=== PATIENT | male | born 1990 | race Caucasian/White ===

== ENCOUNTER 2019-07-26 08:00 | Outpatient (CLI) | payer MEDICAID ==
--- NOTE | 2019-07-26 15:27 | XRAY Report ---
Reason: THORACIC BACK PAIN Procedure Date: 07/26/2019 Accession Number: [id number] / [id number] Procedure: WCP - Thoracic Spine 3 View CPT Code: Final Report FULL RESULT: PROCEDURE: Thoracic Spine 3 View INDICATIONS: THORACIC BACK PAIN TECHNIQUE: 3 views of the thoracic spine were acquired. COMPARISON: None. FINDINGS: Bones: No fractures or dislocations. No suspicious bony lesions. 12 pairs of ribs are noted, and appear intact where visualized. Soft tissues: No paravertebral stripe thickening. IMPRESSION: No evidence acute bony abnormality of the thoracic spine. Reviewed by: Kenny Anthony MD on 07/26/2019 3:26 PM PDT Approved by: Kenny Anthony MD on 07/26/2019 3:26 PM PDT Station ID: [id number]
== END 2019-07-26 23:59 | disposition home or self-care (01) ==
LOC: DI.WCP 08:00
PROVIDERS: ATTEND Family Medicine
DX: M54.6 Pain in thoracic spine (principal)
CPT/HCPCS: 72072

== ENCOUNTER 2019-10-07 07:00 | Outpatient (CLI) | payer MEDICAID | END 2019-10-07 07:01 | disposition home or self-care (01) | LOC: LAB.R 07:00 | PROVIDERS: ATTEND Orthopaedic Surgery | DX: Z01.812 Encounter for preprocedural laboratory examination (principal); S82.842A Displaced bimalleolar fracture of left lower leg, initial encounter for closed fracture; Z20.828 Contact with and (suspected) exposure to other viral communicable diseases ==

== ENCOUNTER 2019-10-11 12:25 | Day surgery (SDC) | payer MEDICAID ==
[~2019-10-11 12:25] MED LIST: BACITRACIN 50,000 UNIT VIAL ONE; BUPIVACAINE 0.25% PF 30 ML VIAL ONE; EPINEPHrine 1 MG/ML AMP ONE
[2019-10-11] MEDS ORDERED: ACETAMINOPHEN 1,000 MG/100 ML 100 ML IV ONE (12:26)
[2019-10-11] MEDS ORDERED: LACTATED RINGERS 1,000 ML IV ONE ×2 (12:56→18:18)
[2019-10-11] MEDS ORDERED: CEFAZOLIN SODIUM IN 0.9 % NACL 2 GM/100 ML BAG IV ONE (13:10)
--- NOTE | 2019-10-11 15:02 | ANESTHESIA ---
Pre-Anesthesia VS, & Labs - Diagnosis L ankle fx - Procedure L ankle ORIF Vital Signs: Temp Pulse Resp BP Pulse Ox 37.2 C 62 12 129/88 H 97 10/11/19 12:47 10/11/19 12:47 10/11/19 12:47 10/11/19 12:47 10/11/19 12:47 Height 5 ft 11 in Weight (kg) 66 kg Body Mass Index 20.2 - NPO >8 hours - Lab Results Lab results reviewed: Yes Home Medications and Allergies Allergies/Adverse Reactions: Allergies Allergy/AdvReac Type Severity Reaction Status Date / Time Penicillins Allergy Unknown Verified 10/11/19 12:49 Anes History & Medical History - Anesthetic History Anesthesia Complications: reports: No previous complications Family history of Anesthesia Complications: Denies Family history of Malignant Hyperthermia: Denies - Medical History Cardiovascular: reports: None Pulmonary: reports: None Gastrointestinal: reports: None Urinary: reports: None Musculoskeletal: reports: None Endocrine/Autoimmune: reports: None Skin: reports: None Smoking Status: Never smoker Exam General: Alert, Oriented x3, Cooperative Dental: WNL Mouth Openin Fingerbreadth Neck Mobility: Normal Mallampati classification: II Thyromental Distance: greater than 6 cm Respiratory: Lungs clear, Normal breath sounds, No respiratory distress Cardiovascular: Regular rate Neurological: Normal speech Mental/Cognitive Status: Alert/Oriented X3, Normal for patient Cognitive Status: Within normal limits Plan Anesthesia Type: General, Popliteal Block (lateral sciatic after induction) Consent for Procedure(s) Verified and Reviewed: Yes Code Status: Attempt Resuscitation ASA classification: 2-Mild systemic disease Is this case an emergency?: No
[2019-10-11] MEDS ORDERED: BUPIVACAINE 0.25% PF 30 ML VIAL ONE (15:11)
[2019-10-11] MEDS ORDERED: BACITRACIN ZINC OINT 1 PACKET TOP ONE (17:57)
[2019-10-11] MEDS ORDERED: BUPIVACAINE 0.25% PF 30 ML VIAL SUBQ ONE (17:59)
--- NOTE | 2019-10-11 18:15 | OPERATIVE REPORT ---
Operative Report - General Procedure Date: 10/11/19 Planned Procedure: Open reduction internal fixation Left ankle Pre-Op Diagnosis: Closed, displaced bimalleolar fracture left ankle Procedure Performed: Open reduction internal fixation bimalleolar fracture left ankle Post Op Diagnosis: Same as preop diagnosis - Procedure Note Primary Surgeon: Dr. Germán Xiao Secondary Surgeon: Braulio SALAS Anesthesia Technique: General mask, Regional block Estimated Blood Loss (mL): 25 Indications: Bimalleolar fracture right ankle with unstable ankle mortise Findings: This was a Narvaez B ankle fracture with the fracture of the lateral malleolus above the joint line and no black with a medial malleolar fracture below ankle joint and transverse in orientation. Complications: None known - Other Other Information/Narrative: The patient was brought to the operating room and was given a general anesthetic as well as a popliteal block to the left leg. He was placed in a supine posit ion with padded gel bags beneath the left buttock. A pneumatic tourniquet was applied to the proximal left thigh over cast padding and secured with a U drape. The left upper extremity was prepped and draped in a sterile manner in the usual fashion. A timeout procedure was performed by the entire operating room team and all were in agreement. The left leg was exsanguinated and the thigh pneumatic tourniquet was elevated to 250 mmHg. A posterior fibular incision was made in a longitudinal fashion beginning at the lateral malleolus and extending it proximally. The peroneal tendon was protected. The fracture site was identified. Fracture hematoma was removed using curette and saline lavage. A bump was used to facilitate fracture reduction as well as bone clamps that were pointed. The fracture was reduced and was temporarily stabilized with a intramedullary K wire. A posterior lateral [employer]hew plate was applied to the posterior aspect of the fibula. The plate was held in place with a plate clamp. 3 holes were placed distal to the fracture including one screw hole that crossed the fracture in a perpendicular fashion to give direct fracture fixation as well as buttress plate fixation with the additional screws that were placed proximally. An 8 hole plate was applied. The alignment was anatomic and the fixation was excellent with nonlocking screws. The plate conformed well to the bone as the screws compressed the plate to the bone.Intraoperative x-rays were obtained with the C arm image intensifier using biplanar imaging. A second incision was made over the medial malleolus, protecting the saphenous vein as well as the posterior tibial tendon posteriorly. The fracture was opened, saline lavage was performed. The fracture was secured with a small bone clamp. A cannulated guidepin was inserted, drilled and a 4.0 cancellus compression screw was inserted using the C arm image intensifier for guidance. The fracture alignment was very good, the ankle mortise was stable. The syndesmosis was stressed and was found to be stable. The tourniquet was deflated after 87 minutes. The wounds were irrigated with saline. The soft tissue was closed with 2-0 Vicryl. The skin was closed with stainless steel иван. Bacitracin, Xeroform, sterile gauze and a well-padded posterior fiberglass splint was applied with the ankle in neutral dorsiflexion. He did receive 2 g of Ancef intravenously and tolerated the procedure well.A physician pediatric medical assistant was utilized during the procedure to facilitate exposure, fracture reduction, assistance with internal fixation, wound closure and splint application during the procedure.
[2019-10-11] MEDS ORDERED: KETOROLAC 15 MG/ML VIAL IVP STA (18:19)
[2019-10-11] MEDS ORDERED: oxyCODONE 5 MG TABLET PO PRN (18:19)
[2019-10-11] MEDS ORDERED: NALOXONE 0.4 MG/ML VIAL IVP PRN (18:37)
[2019-10-11] MEDS ORDERED: ATROPINE ABBOJECT 1 MG/10 ML SYRINGE IVP PRN (18:37)
[2019-10-11] MEDS ORDERED: fentaNYL 100 MCG/2 ML VIAL IVP PRN (18:37)
[2019-10-11] MEDS ORDERED: MORPHINE 2 MG/ML CARPUJECT IVP PRN (18:37)
[2019-10-11] MEDS ORDERED: METOCLOPRAMIDE 10 MG/2 ML VIAL IVP PRN (18:37)
[2019-10-11] MEDS ORDERED: ePHEDrine 50 MG/ML VIAL IVP PRN (18:37)
[2019-10-11] MEDS ORDERED: HYDROmorphone 0.5 MG/0.5 ML SYRINGE IVP PRN (18:37)
[2019-10-11] MEDS ORDERED: ONDANSETRON 4 MG/2 ML VIAL IVP PRN (18:37)
--- NOTE | 2019-10-11 18:44 | ANESTHESIA POST OP EVALUATION ---
Anesthesia Post Eval - Post Anesthesia Eval Vitals: Last Vital Signs Temp 37.2 C 10/11/19 12:47 Pulse 62 10/11/19 12:47 Resp 12 10/11/19 12:47 BP 129/88 H 10/11/19 12:47 Pulse Ox 97 10/11/19 12:47 CV Function Including HR & BP: positive: Stable Pain Control: positive: Satisfactory Nausea & Vomiting: positive: Negative Mental Status: positive: Baseline Respiratory Status: Airway Patent Hydration Status: Satisfactory Anesthesia Complications: positive: None
[2019-10-11] MEDS ORDERED: LACTATED RINGERS 1,000 ML IV SCH (19:00)
[2019-10-11] MEDS ORDERED: fentaNYL 100 MCG/2 ML VIAL ONE (19:01)
[2019-10-11 20:47] VITALS: BP 130/68
--- NOTE | 2019-10-12 16:34 | XRAY Report ---
PROCEDURE: OR C-Arm Procedure INDICATIONS: ANKLE FX TECHNIQUE: 2 images was provided for evaluation. COMPARISON: X-ray ankle 10/01/2019 FINDINGS: Single intraoperative images demonstrate medial malleolar and distal fibular fixation. IMPRESSION: Medial malleolar distal fibular fixation. Reviewed by: Estefany Jin MD on 10/12/2019 4:33 PM PDT Approved by: Estefany Jin MD on 10/12/2019 4:33 PM PDT Station ID: [id number]
== END 2019-10-11 21:20 | disposition home or self-care (01) ==
LOC: SDS 12:25 → MS3 19:11 → SDS 21:20
PROVIDERS: ATTEND Orthopaedic Surgery
DX: S82.842A Displaced bimalleolar fracture of left lower leg, initial encounter for closed fracture (principal); Z87.891 Personal history of nicotine dependence; X58.XXXA Exposure to other specified factors, initial encounter
CPT/HCPCS: 27814; A9270; J0690; J7120

== ENCOUNTER 2019-10-21 08:22 | Outpatient (CLI) | payer MEDICAID ==
--- NOTE | 2019-10-21 14:44 | XRAY Report ---
PROCEDURE: Ankle 3 View LT INDICATIONS: DISPLACED BIMALLEOLAR FRACTURE OF LEFT LOWER LEG TECHNIQUE: 3 views of the ankle were acquired. COMPARISON: 10/11/2019, 10/01/2019 FINDINGS: Bones: ORIF hardware in the medial and lateral malleoli. Specifically, lack screw in the medial malle olus and screw hardware construct at the lateral malleolus and distal fibula. Ankle mortise appears c ongruent. Anatomic alignment of the fracture fragments, significantly improved when compared to prior study. Small displaced fracture fragment remains in the anterior joint space, best seen on lateral v iew. Soft tissues: No tibiotalar joint effusion. Achilles tendon appears normal. IMPRESSION: Post surgical changes related to medial and lateral malleolus ORIF. No acute, getting us rdware feature. There remains a small displaced fracture fragment in the anterior joint space, best s een on lateral view. Reviewed by: Elroy Hood MD on 10/21/2019 2:43 PM PDT Approved by: Elroy Hood MD on 10/21/2019 2:43 PM PDT Station ID: [id number]
== END 2019-10-21 08:23 | disposition home or self-care (01) ==
LOC: DI.WCP 08:22
PROVIDERS: ATTEND Orthopaedic Surgery
DX: S82.842D Displaced bimalleolar fracture of left lower leg, subsequent encounter for closed fracture with routine healing (principal)

== ENCOUNTER 2019-11-25 07:36 | Outpatient (CLI) | payer MEDICAID ==
--- NOTE | 2019-11-25 11:40 | XRAY Report ---
PROCEDURE: Ankle 3 View LT INDICATIONS: LEFT ANKLE FRACTURE, POST-OP TECHNIQUE: 3 views of the ankle were acquired. COMPARISON: 10/13/2019 FINDINGS: Bones: Postsurgical changes compatible with ORIF of medial malleolus and distal fibular fractures not ed. Orthopedic hardware is stable compared to prior examination. Orthopedic hardware remains intact. Medial malleolus and distal fibula fractures remain in anatomic alignment. Small central 0.6 x 0.8 cm avulsed bone fragment in the anterior tibiotalar joint space is stable compared to the prior exam. Soft tissues: No tibiotalar joint effusion. Achilles tendon appears normal. IMPRESSION: Stable postsurgical changes compatible with ORIF of medial malleolus and distal fibular fractures. Stable avulsed bone fragment in the anterior tibiotalar joint. Reviewed by: Adri Orellana MD, PhD on 11/25/2019 11:39 AM PDT Approved by: Adri Orellana MD, PhD on 11/25/2019 11:39 AM PDT Station ID: [id number]
== END 2019-11-25 07:37 | disposition home or self-care (01) ==
LOC: DI.WCP 07:36
PROVIDERS: ATTEND Orthopaedic Surgery
DX: S82.52XA Displaced fracture of medial malleolus of left tibia, initial encounter for closed fracture (principal); S82.832A Other fracture of upper and lower end of left fibula, initial encounter for closed fracture

== ENCOUNTER 2019-12-26 16:45 | Outpatient (CLI) | payer MEDICAID ==
--- NOTE | 2019-12-26 16:48 | XRAY Report ---
PROCEDURE: Ankle 3 View LT INDICATIONS: BIMALLEOLAR FRACTURE LEFT ANKLE TECHNIQUE: 3 views of the ankle were acquired. COMPARISON: X-ray ankle 11/25/2019 FINDINGS: Bones: There is stable appearance of bimalleolar ORIF. Hardware is intact. Alignment is stable. Mild midfoot osteopenia is present. Bony fragment overlying tibiotalar joint space is unchanged. Ankle mor tise is normally aligned. No suspicious bony lesions. Soft tissues: No tibiotalar joint effusion. Achilles tendon appears normal. IMPRESSION: Stable alignment as above. Reviewed by: Estefany Jin MD on 12/26/2019 4:46 PM PST Approved by: Estefany Jin MD on 12/26/2019 4:46 PM PST Station ID: [id number]
== END 2019-12-26 23:59 | disposition home or self-care (01) ==
LOC: DI.WCP 16:45
PROVIDERS: ATTEND Orthopaedic Surgery
DX: S82.842D Displaced bimalleolar fracture of left lower leg, subsequent encounter for closed fracture with routine healing (principal)

== ENCOUNTER 2020-05-04 08:00 | Outpatient (CLI) | payer MEDICAID ==
--- NOTE | 2020-05-04 12:31 | XRAY Report ---
PROCEDURE: Ankle 3 View LT INDICATIONS: LEFT ANKLE PAIN TECHNIQUE: 3 views of the ankle were acquired. COMPARISON: 12/26/2019 FINDINGS: Bones: Post ORIF changes are noted in distal fibular shaft and medial malleolus. No gross hardware l oosening or failure is seen. No acute fractures or dislocations. Patient's known distal fibular shaft fracture has healed. Bony union and medial malleolus fracture site. Ankle mortise is normally aligne d. No suspicious bony lesions. Soft tissues: No tibiotalar joint effusion. Achilles tendon appears normal. Medial ankle soft tiss ue swelling is noted. IMPRESSION: 1. Post ORIF changes in left ankle with anatomic alignment. No acute fracture or dislocation. No tavia s hardware complication. Medial ankle soft tissue swelling. Reviewed by: Kervin Jackson MD on 05/04/2020 12:30 PM PST Approved by: Kervin Jackson MD on 05/04/2020 12:30 PM PST Station ID: [id number]
== END 2020-05-04 23:59 | disposition home or self-care (01) ==
LOC: DI.N 08:00
PROVIDERS: ATTEND Orthopaedic Surgery
DX: Z48.89 Encounter for other specified surgical aftercare (principal)

== ENCOUNTER 2020-05-11 13:26 | Outpatient (CLI) | payer MEDICAID | END 2020-05-11 13:27 | disposition home or self-care (01) | LOC: COV 13:26 | PROVIDERS: ATTEND Orthopaedic Surgery | DX: Z01.812 Encounter for preprocedural laboratory examination (principal); S82.52XA Displaced fracture of medial malleolus of left tibia, initial encounter for closed fracture; Z20.822 Contact with and (suspected) exposure to COVID-19 ==

== ENCOUNTER 2020-05-16 12:25 | Day surgery (SDC) | payer MEDICAID ==
[2020-05-16] MEDS ORDERED: ceFAZolin 2 GM/50 ML 2 GM/50 ML BAG IV ONE (12:47)
--- NOTE | 2020-05-16 13:11 | ANESTHESIA ---
Pre-Anesthesia VS, & Labs - Diagnosis left medial malleolus ankle fracture - Procedure hardware removal left ankle medial malleolous Vital Signs: Temp Pulse Resp BP Pulse Ox 36.9 C 97 20 116/78 98 05/16/20 12:48 05/16/20 12:48 05/16/20 12:48 05/16/20 12:48 05/16/20 12:48 Height: 5 ft 11 in Weight (kg): 75 kg Body Mass Index: 23.1 BMI Classification: Healthy weight - NPO >8 hours - Lab Results Lab results reviewed: Yes Home Medications and Allergies Allergies/Adverse Reactions: Allergies Allergy/AdvReac Type Severity Reaction Status Date / Time Penicillins Allergy Unknown Verified 10/11/19 12:49 Anes History & Medical History - Anesthetic History Anesthesia Complications: reports: No previous complications Family history of Anesthesia Complications: Denies Family history of Malignant Hyperthermia: Denies - Medical History Cardiovascular: reports: None Pulmonary: reports: None Gastrointestinal: reports: None Urinary: reports: None Musculoskeletal: reports: None Endocrine/Autoimmune: reports: None Skin: reports: None Smoking Status: Never smoker Psychosocial: reports: Anxiety Exam General: Alert, Oriented x3, Cooperative, No acute distress Dental: WNL Mouth Openin Fingerbreadth Neck Mobility: Normal Mallampati classification: I Respiratory: Lungs clear Cardiovascular: Regular rate, Normal S1, Normal S2, No murmurs Plan Anesthesia Type: General, Popliteal Block (if needed), Adductor Block Consent for Procedure(s) Verified and Reviewed: Yes Code Status: Attempt Resuscitation ASA classification: 1-Healthy patient Is this case an emergency?: No
[2020-05-16] MEDS ORDERED: MIDAZOLAM 2 MG/2 ML VIAL ONE (14:01)
[2020-05-16] MEDS ORDERED: fentaNYL 100 MCG/2 ML VIAL ONE (14:01)
[2020-05-16] MEDS ORDERED: ROPIVACAINE 0.5% PF 20 ML AMPULE ONE (14:02)
[2020-05-16] MEDS ORDERED: DEXAMETHASONE 10 MG/ML VIAL ONE (14:02)
[2020-05-16] MEDS ORDERED: PROPOFOL 200 MG/20 ML VIAL IVP ONE (14:02)
[2020-05-16] MEDS ORDERED: ONDANSETRON 4 MG/2 ML VIAL ONE (14:02)
[2020-05-16] MEDS ORDERED: DEXAMETHASONE 4 MG/ML VIAL ONE (14:02)
[2020-05-16] MEDS ORDERED: METOCLOPRAMIDE 10 MG/2 ML VIAL IVP PRN (14:06)
[2020-05-16] MEDS ORDERED: NALOXONE 0.4 MG/ML VIAL IVP PRN (14:06)
[2020-05-16] MEDS ORDERED: ePHEDrine 50 MG/ML VIAL IVP PRN (14:06)
[2020-05-16] MEDS ORDERED: ONDANSETRON 4 MG/2 ML VIAL IVP PRN (14:06)
[2020-05-16] MEDS ORDERED: HYDROmorphone 0.5 MG/0.5 ML SYRINGE IVP PRN (14:06)
[2020-05-16] MEDS ORDERED: ATROPINE ABBOJECT 1 MG/10 ML SYRINGE IVP PRN (14:06)
[2020-05-16] MEDS ORDERED: MORPHINE 2 MG/ML CARPUJECT IVP PRN (14:06)
[2020-05-16] MEDS ORDERED: fentaNYL 100 MCG/2 ML VIAL IVP PRN (14:06)
[2020-05-16] MEDS ORDERED: LACTATED RINGERS 1,000 ML IV SCH (15:00)
--- NOTE | 2020-05-16 15:22 | OPERATIVE REPORT ---
Operative Report - General Procedure Date: 05/16/20 Planned Procedure: Removal internal fixation medial malleolus, possible repair medial malleolus Left ankle Pre-Op Diagnosis: Pain over internal fixation site medial malleolus left ankle Procedure Performed: Removal of internal fixation medial malleolus left ankle Post Op Diagnosis: Pain over internal fixation site medial malleolus left ankle - Procedure Note Primary Surgeon: Germán Xiao MD Secondary Surgeon: Braulio SALAS Anesthesia Provider: Sanjay Nichols CRNA Anesthesia Technique: General ET tube, Regional block Estimated Blood Loss (mL): 5 Indications: This is a 30-year-old man who previously sustained a bimalleolar fracture of his left ankle last year and underwent open reduction internal fixation of the medial and lateral malleolar I did. He has pain directly over the medial malle olus that has not improved and is very aggravating with weightbearing and any activity. His preoperative x-rays suggest healing of his medial malleolar fracture, ankle mortise intact, no sign of posttraumatic arthritis. Because of a potential incomplete union of medial malleolar fracture to his left ankle, I did discuss with him the possibility of a repair If indicated and he was in agreement. Findings: The screw to the medial malleolus was a cancellous screw. The screw was not loose. There is no sign of any nonunion at the fracture site of the medial malleolus. The ankle mortise was intact. And C-arm imaging was used to also confirm the clinical impression of union of the medial malleolus to his left ankle. There is no sign of deltoid insufficiency to his left ankle Complications: None - Other Other Information/Narrative: After satisfactory anesthesia was achieved, patient was placed in a supine position with the left leg on a bolster. The left leg was prepped and draped in a sterile manner in the usual fashion. A timeout procedure was performed by the entire operating room team and all were in agreement. A physician technical administrative assistant was utilized to help with the exposure and protection of vital structures as well as wound closure and splint application. The previous scar was opened over the medial malleolus. This was a longitudinal incision full-thickness flaps were developed just enough to expose the tip of the medial malleolus. The deltoid was split and the screw was identified, clearing the head of the screw with electrocautery. The screwdriver of appropriate size was then used to remove the screw. The tip of the medial malleolus was gently rounded with a rongeur where the screw head had been previously. The wound was irrigated. The deltoid was closed with 2-0 Vicryl. The skin was closed with 4-0 Monocryl subcuticular suture with Dermabond. A sterile dressing was applied as well as a short leg padded posterior nonweightbearing splint to left leg. He tolerated procedure well. No tourniquet was utilized.
[2020-05-16] MEDS ORDERED: oxyCODONE 5 MG TABLET PO PRN (15:34)
[2020-05-16] MEDS ORDERED: KETOROLAC 15 MG/ML VIAL IVP STA (15:34)
[2020-05-16] MEDS ORDERED: LACTATED RINGERS 500 ML IV ONE (15:37)
[2020-05-16] MEDS ORDERED: oxyCODONE 5 MG TABLET ONE (16:27)
[2020-05-16] MEDS ORDERED: KETOROLAC 15 MG/ML VIAL ONE (16:28)
--- NOTE | 2020-05-16 16:42 | ANESTHESIA POST OP EVALUATION ---
Anesthesia Post Eval - Post Anesthesia Eval Vitals: Last Vital Signs Temp 36.5 C 05/16/20 16:30 Pulse 55 L 05/16/20 16:30 Resp 14 05/16/20 16:30 BP 126/82 H 05/16/20 16:30 Pulse Ox 100 05/16/20 16:30 CV Function Including HR & BP: positive: Stable Pain Control: positive: Satisfactory Nausea & Vomiting: positive: Negative Mental Status: positive: Baseline Respiratory Status: Airway Patent Hydration Status: Satisfactory Anesthesia Complications: positive: None
[2020-05-16 16:59] VITALS: BP 116/78
--- NOTE | 2020-05-16 17:20 | XRAY Report ---
PROCEDURE: OR C-Arm Procedure INDICATIONS: LEFT ANKLE HARDWARE REMOVAL TECHNIQUE: Single frontal view, intraoperative. COMPARISON: Plain films left ankle dated 05/04/2020.. FINDINGS: Prior lateral fixation plate is partially visualized, to the uppermost crossing screw but not above. This plate and transverse screws show no evidence of device loosening or disruption. A previously pre sent cephalad oriented fixation screw crossing a fracture at the base of the medial malleolus appears to been removed, and the prior plain film imaging had not shown what appeared to be osseous fusion a cross the fracture plane. IMPRESSION: Single postoperative view, no change at the lateral fixation plate or screws. Removal of a cephalad o riented fixation screw crossing the fracture at the base of the medial malleolus, which may have not been associated with a healing fracture in that area, with nonunion. Follow-up postoperative imaging assessing for repeat fixation and evidence of union of fracture is anticipated. Reviewed by: Lanre Nick MD on 05/16/2020 5:19 PM PDT Approved by: Lanre Nick MD on 05/16/2020 5:19 PM PDT Station ID: [id number]
== END 2020-05-16 12:26 | disposition home or self-care (01) ==
LOC: SDS 12:25
PROVIDERS: ATTEND Orthopaedic Surgery
DX: T84.84XA Pain due to internal orthopedic prosthetic devices, implants and grafts, initial encounter (principal); Z87.891 Personal history of nicotine dependence
CPT/HCPCS: 20680; A9270; J0690; J7120

== ENCOUNTER 2020-06-11 06:26 | Emergency (ER) | payer MEDICAID ==
[2020-06-11 06:44] VITALS: BP 122/79
[2020-06-11] MEDS ORDERED: SULFAMETH/TRIMETH DS 800/160 MG TABLET PO STA (07:02)
--- NOTE | 2020-06-11 07:09 | ED Physician Documentation ---
PD HPI SKIN - Stated complaint Stated Complaint: LT LEG SURGERY COMPLICATION - Chief complaint Chief Complaint: Wound - History obtained from History obtained from: Patient - Additional information Additional information: Patient comes emergency department chief complaint of drainage from left ankle surgical wound site since yesterday. Patient had a surgical repair of left ankle fracture last summer and about 3 weeks ago, had removal of a screw from his distal tibia, secondary to ongoing pain. The patient states that he was feeling much better almost immediately after the surgery and has been able to bear weight fairly well. However, he started to notice yesterday that his ankles becoming more swollen and that it seemed to hurt a bit again. He has not had any new injury. He denies fevers or chills. He states he noticed a little increased redness around the wound, but mainly, he noticed that the very inferior most portion of the wound had opened up a tiny bit and that he was having some whitish-yellow cloudy discharge coming from the wound. Patient denies any other complaints at this time. He states he is scheduled to see Dr. Xiao at 1:00 this afternoon, but came to the ED because he was afraid if he waited too long, his wound would become infected even worse and he may end up with an amputation. No other complaints at this time. Review of Systems Ten Systems: 10 systems reviewed and negative Constitutional: reports: Reviewed and negative Eyes: reports: Reviewed and negative Ears: reports: Reviewed and negative Nose: reports: Reviewed and negative Throat: reports: Reviewed and negative Cardiac: reports: Reviewed and negative Respiratory: reports: Reviewed and negative GI: reports: Reviewed and negative : reports: Reviewed and negative Skin: reports: Other (Postop wound drainage) Musculoskeletal: reports: Pain with weight bearing Neurologic: reports: Reviewed and negative Psychiatric: reports: Reviewed and negative Endocrine: reports: Reviewed and negative Immunocompromised: reports: Reviewed and negative PD PAST MEDICAL HISTORY - Past Medical History Past Medical History: No Cardiovascular: None Respiratory: None Endocrine/Autoimmune: None GI: None : None HEENT: None Psych: None Musculoskeletal: None Derm: None - Past Surgical History Past Surgical History: Yes Ortho: Other - Present Medications Home Medications: Ambulatory Orders Medication Instructions Recorded Confirmed Sulfamethox/Trimeth 800/160 1 each PO BID #14 tablet 06/11/20 [Bactrim Ds 800/160] - Allergies Allergies/Adverse Reactions: Allergies Allergy/AdvReac Type Severity Reaction Status Date / Time Penicillins Allergy Unknown Verified 06/11/20 06:44 - Social History Does the pt smoke?: No Smoking Status: Never smoker Does the pt drink ETOH?: Yes Does the pt have substance abuse?: No - Immunizations Immunizations are current?: Yes Immunizations: TDAP >10years/unknown - POLST Patient has POLST: No PD ED PE NORMAL - Vitals Vital signs reviewed: Yes - General General: Alert and oriented X 3, No acute distress, Well developed/nourished - HEENT HEENT: Atraumatic, PERRL, EOMI, Moist mucous membranes - Neck Neck: Supple, no meningeal sign - Cardiac Cardiac: Strong equal pulses - Respiratory Respiratory: No respiratory distress - Derm Derm: Warm and dry, Other (Well-healed vertical surgical incision over left medial malleolus with slightly increased Erythema localized to the inferior most portion of the wound. Small amount of seropurulent drainage is expressible from the wound. Erythema is minimal and localized to within a 1 cm radius of incision.) - Extremities Extremities: No deformity, Other (Mild edema localized to medial left ankle. Mild tenderness palpation over left medial malleolus) - Neuro Neuro: Alert and oriented X 3, audio visual equipment rental clerk 2-12 intact, Normal speech, Other (Grossly normal) - Psych Psych: Normal mood, Normal affect Results - Vitals Vitals: Vital Signs - 24 hr 06/11/20 06:35 Temperature 36.7 C Heart Rate 79 Respiratory 16 Rate Blood Pressure 122/79 O2 Saturation 98 Oxygen O2 Source Room air PD MEDICAL DECISION MAKING - ED course Complexity details: considered differential, d/w patient ED course: The patient had fairly mild findings, but did have what appeared to be some purulence mixed in with the serous drainage expressible from his postoperative wound. I did culture this. Given that the patient been doing quite a bit better and did now have wound dehiscence and some drainage, I did go ahead and put him on antibiotics. He was started on Bactrim. The patient questions whether he should go to his orthopedic appointment this afternoon and I have informed him that he absolutely must, as the emergency department is not a substitute for follow-up with his specialist. We have discussed that the patient should use 2 crutches for now, with NWB and prop his foot up whenever possible until ankle is feeling better. We have discussed the usual indications for return. Departure - Departure Disposition: 01 Home, Self Care Clinical Impression: Wound infection after surgery Condition: Stable Instructions: ED Wound Infec After Surgery Prescriptions: Sulfamethox/Trimeth 800/160 [Bactrim Ds 800/160] 1 each PO BID #14 tablet Comments: You appear to possibly have a mild infection of the lowermost portion of your surgical wound. This does not appear to be severe at this time, and is expected to respond well to antibiotics. Please take the antibiotics as directed, starting today. You have been given the first dose in the emergency department. To help with some of the discomfort and swelling, you should prop your foot up whenever possible, as well as use both crutches and keep weight off the foot as much as possible for the next several days to a week. Please by all means keep your appointment with Dr. Xiao today, as it is very important to see your orthopedist. A visit to the emergency department does not take the place of your specialty follow-up.
--- NOTE | 2020-06-14 09:58 | ED Physician Documentation ---
ED Addendum - Addendum Addendum: 06/14/20 09:55 Mr. Wheeler called back on 06/14 requesting additional Bactrim, stating that he has accidentally been taking it 4 times a day instead of twice daily. No prior history of medical issues including kidney issues per his report and he is otherwise asymptomatic. I advised him to come into the emergency room for wound check and possible bloodwork since he initially expressed concerns the infection was getting worse. He states it actually looks a little better and he would prefer to follow up with his primary doctor or urgent care.
== END 2020-06-11 07:42 | disposition home or self-care (01) ==
LOC: ED 06:26
DX: T81.41XA Infection following a procedure, superficial incisional surgical site, initial encounter (principal); Y83.8 Other surgical procedures as the cause of abnormal reaction of the patient, or of later complication, without mention of misadventure at the time of the procedure
CPT/HCPCS: 87070; 87181; 87205; 99283; 99284; A9270

== ENCOUNTER 2020-06-14 08:00 | Outpatient (CLI) | payer MEDICAID ==
[2020-06-14 20:12] LABS: ALBUMIN 4.9 g/dL (3.2-5.5); ALBUMIN/GLOBULIN RATIO 1.4 (1.0-2.2); BILIRUBIN,TOTAL 0.6 mg/dL (0.2-1.0); CREATININE 1.1 mg/dL (0.6-1.2); POTASSIUM 3.9 mmol/L (3.5-5.0); TOTAL PROTEIN 8.5 g/dL (6.7-8.2)
[2020-06-16 09:16] LABS: HIV AG/AB 4TH GEN NON-REACTIVE (NON-REACTIVE)
[2020-06-16 15:01] LABS: HEPATITIS C ANTIBODY NON-REACTIVE (NON-REACTIVE)
== END 2020-06-14 23:59 | disposition home or self-care (01) ==
LOC: LAB.S 08:00
PROVIDERS: ATTEND Physician Assistant
DX: Z11.3 Encounter for screening for infections with a predominantly sexual mode of transmission (principal); Z79.899 Other long term (current) drug therapy
CPT/HCPCS: 36415; 80053; 81599; 86592; 86803; 87389

== ENCOUNTER 2020-11-14 15:42 | Outpatient (CLI) | payer MEDICAID ==
--- NOTE | 2020-11-14 16:41 | Ultrasound Report ---
PROCEDURE: Testicle INDICATIONS: Testicular mass TECHNIQUE: Real-time scanning was performed of the scrotum and testicles, with image documentation. Color and p ulse Doppler interrogation was performed of both testicles. COMPARISON: None. FINDINGS: There are trace bilateral hydroceles. No varicocele. Both testicles are normal in size and appearance . There is no testicular mass. Normal arterial and venous blood flow present within both testicles. IMPRESSION: Trace bilateral hydroceles. No testicular mass. Reviewed by: Elroy Hood MD on 11/14/2020 4:39 PM PDT Approved by: Elroy Hood MD on 11/14/2020 4:39 PM PDT Station ID: [id number]
== END 2020-11-14 15:43 | disposition home or self-care (01) ==
LOC: DI 15:42
PROVIDERS: ATTEND Family Medicine
DX: N43.3 Hydrocele, unspecified (principal)

== ENCOUNTER 2021-11-15 15:33 | Outpatient (CLI) | payer MEDICAID ==
--- NOTE | 2021-11-15 14:53 | XRAY Report ---
PROCEDURE: Ankle 3 View LT INDICATIONS: LEFT ANKLE PAIN TECHNIQUE: 3 views of the ankle were acquired. COMPARISON: 05/04/2020 FINDINGS: Bones: No acute fractures or dislocations. Interval removal of a medial malleolar screw. There is a well-corticated, mildly displaced transverse medial malleolar fracture. The lateral distal fibular co mpression plate and multiple screws are intact, in stable position, and there is no surrounding lucen cy. Ankle mortise is normally aligned. No suspicious bony lesions. Soft tissues: Small tibiotalar joint effusion. Achilles tendon appears normal. There is focal, but chronic soft tissue swelling over the proximal aspect of the lateral fibular compression plate. No ra diodensity or soft tissue gas. IMPRESSION: 1. There is chronic focal soft tissue swelling overlying the proximal fibular hardware without underl adalberto hardware, osseous, or soft tissue abnormality. 2. Interval removal of medial malleolar screw with nonunited, chronic medial malleolar fracture. Reviewed by: Anahi Ibrahim MD on 11/15/2021 2:52 PM PDT Approved by: Anahi Ibrahim MD on 11/15/2021 2:52 PM PDT Station ID: [id number]
== END 2021-11-15 15:34 | disposition home or self-care (01) ==
LOC: DI.S 15:33
PROVIDERS: ATTEND Physician Assistant
DX: M79.89 Other specified soft tissue disorders (principal); S82.52XK Displaced fracture of medial malleolus of left tibia, subsequent encounter for closed fracture with nonunion

== ENCOUNTER 2022-05-31 09:00 | Outpatient (CLI) | payer MEDICAID | END 2022-05-31 23:59 | disposition home or self-care (01) | LOC: LAB.S 09:00 | PROVIDERS: ATTEND Physician Assistant Medical | DX: K61.0 Anal abscess (principal) | CPT/HCPCS: 87070; 87205 ==

== ENCOUNTER 2023-04-27 20:13 | Day surgery (SDC) | payer MEDICAID ==
[2023-04-27 20:50] LABS: BASOPHILS # (AUTO) 0.1 10^3/uL (0.0-0.1); BASOPHILS % (AUTO) 0.5 %; EOSINOPHILS # (AUTO) 0.1 10^3/uL (0.0-0.7); EOSINOPHILS % (AUTO) 0.7 %; HGB - HEMOGLOBIN 16.4 g/dL (14.0-18.0); LYMPHOCYTES # (AUTO) 1.1 10^3/uL (1.5-3.5); LYMPHOCYTES % (AUTO) 5.9 %; MEAN CORPUSCULAR HEMOGLOBIN 30.9 pg (27.0-31.0); MEAN CORPUSCULAR HGB CONC 34.2 g/dL (32.0-36.0); MEAN CORPUSCULAR VOLUME 90.6 fL (80.0-94.0); MEAN PLATELET VOLUME 9.7 fL (7.4-11.4); MONOCYTES % (AUTO) 5.7 %; NEUTROPHILS # (AUTO) 15.5 10^3/uL (1.5-6.6); NEUTROPHILS % (AUTO) 86.9 %; PLT - PLATELET COUNT 325 10^3/uL (130-450); RED CELL DISTRIBUTION WIDTH 11.8 % (12.0-15.0); WHITE BLOOD COUNT 17.9 x10^3/uL (4.8-10.8)
[2023-04-27 21:00] LABS: ALBUMIN 5.3 g/dL (3.2-5.5); ALBUMIN/GLOBULIN RATIO 1.6 (1.0-2.2); BILIRUBIN,TOTAL 0.5 mg/dL (0.2-1.0); CALCIUM 10.4 mg/dL (8.5-10.3); CREATININE 1.1 mg/dL (0.6-1.3); POTASSIUM 3.7 mmol/L (3.5-4.5); TOTAL PROTEIN 8.6 g/dL (6.4-8.9)
--- NOTE | 2023-04-27 21:24 | ED Physician Documentation ---
PD HPI ABD PAIN - Stated complaint Stated Complaint: RT SIDE ABD PX - Chief complaint Chief Complaint: Abd Pain - History obtained from History obtained from: Patient - Additional information Additional information: HPI from patient. Patient complains of abdominal pain, gradual onset this morning (approximately 12 hours [employer]GER [employer]). The pain has been constant, progressive in severity. The pain was initially across upper abdomen but over the course of the day has become increasingly focused in right lower quadrant. Pain is exacerbated with palpation and movement. He has nausea but no vomiting. Denies h/o similar symptoms. No past abdominal surgical history. Review of Systems Constitutional: reports: Reviewed and negative Cardiac: reports: Reviewed and negative Respiratory: reports: Reviewed and negative GI: reports: Abdominal Pain, Nausea. denies: Vomiting, Constipation, Diarrhea PD PAST MEDICAL HISTORY - Past Medical History Past Medical History: No Cardiovascular: None Respiratory: None Endocrine/Autoimmune: None GI: None : None HEENT: None Psych: None Musculoskeletal: None Derm: None - Past Surgical History Past Surgical History: Yes Ortho: Other - Present Medications Home Medications: Ambulatory Orders Medication Instructions Recorded Confirmed Sulfamethox/Trimeth 800/160 1 each PO BID #14 tablet 06/11/20 [Bactrim Ds 800/160] - Allergies Allergies/Adverse Reactions: Allergies Allergy/AdvReac Type Severity Reaction Status Date / Time Penicillins Allergy Unknown Verified 06/11/20 06:44 - Social History Does the pt smoke?: No Smoking Status: Never smoker Does the pt drink ETOH?: Yes Does the pt have substance abuse?: No - Immunizations Immunizations are current?: Yes Immunizations: TDAP >10years/unknown - POLST Patient has POLST: No PD ED PE NORMAL - Vitals Vital signs reviewed: Yes - General General: Alert and oriented X 3, No acute distress, Well developed/nourished - Cardiac Cardiac: RRR, No murmur - Respiratory Respiratory: No respiratory distress, Clear bilaterally - Abdomen Abdomen: Soft, Non distended, Other (moderate RLQ tenderness with milder generalized tenderness. (+) Rovsing's sign) Results - Vitals Vitals: Vital Signs - 24 hr 04/27/23 04/27/23 04/27/23 20:15 20:26 22:26 Temperature 36.9 C 36.9 C Heart Rate 60 60 85 Respiratory 16 16 17 Rate Blood Pressure 129/84 H 129/84 H 158/81 H O2 Saturation 100 100 98 04/28/23 04/28/23 04/28/23 02:00 03:00 06:00 Temperature Heart Rate 69 57 L 69 Respiratory 18 15 15 Rate Blood Pressure 129/75 120/79 115/72 O2 Saturation 98 96 96 04/28/23 07:37 Temperature Heart Rate 51 L Respiratory 15 Rate Blood Pressure 137/69 H O2 Saturation 97 Oxygen O2 Source Room air - Labs Labs: Laboratory Tests 04/27/23 04/27/23 04/28/23 20:42 20:42 00:42 WBC 17.9 H RBC 5.30 Hgb 16.4 Hct 48.0 MCV 90.6 MCH 30.9 MCHC 34.2 RDW 11.8 L Plt Count 325 MPV 9.7 Neut # (Auto) 15.5 H Lymph # (Auto) 1.1 L [place] # (Auto) 1.0 Eos # (Auto) 0.1 Baso # (Auto) 0.1 Absolute Nucleated RBC 0.00 Nucleated RBC % 0.0 Sodium 138 Potassium 3.7 Chloride 100 L Carbon Dioxide 29 Anion Gap 9.0 BUN 15 Creatinine 1.1 Estimated GFR (MDRD) 76 L Glucose 118 H Calcium 10.4 H Total Bilirubin 0.5 AST 23 ALT 25 Alkaline Phosphatase 84 Total Protein 8.6 Albumin 5.3 Globulin 3.3 Albumin/Globulin Ratio 1.6 Lipase 19 Urine Color YELLOW Urine Clarity CLEAR Urine pH 5.5 Ur Specific Conley 1.010 Urine Protein NEGATIVE Urine Glucose (UA) NEGATIVE Urine Ketones 15 H Urine Occult Blood NEGATIVE Urine Nitrite NEGATIVE Urine Bilirubin NEGATIVE Urine Urobilinogen 0.2 (NORMAL) Ur Leukocyte Esterase NEGATIVE Ur Microscopic Review NOT INDICATED Urine Culture Comments NOT INDICATED - Rads (name of study) CT A/P with IV contrast Relevant Findings:: Prelim report reviewed, See rad report PD Medical Decision Making - ED course Complexity details: reviewed results, re-evaluated patient, considered differential, d/w patient ED course: Patient presents with H+P that is strongly suggestive of appendicitis. Leukocytosis noted on CBC (WBC 17.9). He is afebrile. CT of the abdomen pelvis demonstrates findings consistent with appendicitis without evidence of pe rforation. He is given 1 liter NS IV and 4mg IV morphine. he reports mild improvement with the morphine but eventually requested more medication and is given 1mg IV dilaudid with good effect (per patient). I discussed this case with Dr. Jimenes (on-call surgery for [facility] Dr. Jimenes comes to ED and enters holding orders. The plan is for patient to go to the OR in the AM, patient to be held in ED until then. The patient was updated on his test results/diagnosis as well as treatment plan. Departure - Departure Disposition: ED Transfer to [facility] Clinical Impression: Appendicitis Qualifiers: Appendicitis type: acute appendicitis Acute appendicitis type: with localized peritonitis Appendicitis gangrene presence: without gangrene Appendicitis perforation presence: without perforation Appendicitis abscess presence: without abscess Qualified Code(s): K35.30 - Acute appendicitis with localized peritonitis, without perforation or gangrene Condition: Good
[2023-04-27] MEDS ORDERED: IOVERSOL 320 100 ML VIAL IVP ONE (21:54)
[2023-04-27] MEDS: MORPHINE 2 MG/ML CARPUJECT IVP STA (21:57)
[2023-04-27] MEDS: IOVERSOL 320 100 ML VIAL IVP ONE (22:26)
--- NOTE | 2023-04-27 22:44 | CT Report ---
PROCEDURE: Abdomen/Pelvis W INDICATIONS: RLQ pain, tenderness CONTRAST: Ioversol 100mls TECHNIQUE: After the administration of intravenous contrast, a CT scan of the abdomen and pelvis was performed. Images were recorded and evaluated at appropriate window settings. Reformats: coronal and sagittal. F or radiation dose reduction, the following was used: automated exposure control, adjustment of mA and /or kV according to patient size. COMPARISON: None. FINDINGS: Image quality: Diagnostic. Lower chest: Unremarkable. Liver: No solid mass. Gallbladder and biliary tree: No radiopaque stones or wall thickening. No biliary dilation. Spleen: No splenomegaly. Pancreas: No pancreatic ductal dilation. Adrenals: No adrenal nodule. Kidneys and ureters: No hydronephrosis. No renal cystic lesion which requires follow up. No solid mas s. Stomach, bowel and peritoneum: There is no bowel obstruction. Enlarged appendix is noted in right low er quadrant with wall thickening and periappendiceal fat stranding. No extraluminal air or drainable fluid collection is seen. Lymph nodes: No central or retroperitoneal adenopathy. Vessels: No infrarenal aortic aneurysm. PELVIS Reproductive organs: Unremarkable. Bladder: No abnormal wall thickening, accounting for underdistention. Pelvic lymph nodes: No pelvic adenopathy by size criteria. Bones: No aggressive osseous abnormality. Other: Small umbilical hernia containing fat only.. IMPRESSION: 1. Findings consistent with acute appendicitis. No signs of perforation. No abscess collection. No fr ee fluid or free air. Reviewed by: Kervin Valdivia MD on 04/27/2023 10:43 PM PST Approved by: Kervin Valdivia MD on 04/27/2023 10:43 PM PST Station ID: [id number]
[2023-04-27] MEDS: SODIUM CHLORIDE 0.9% 1,000 ML IV STA (23:23)
--- NOTE | 2023-04-28 00:17 | CONSULTATION NOTE ---
Referring Provider Name of Referring Provider:: Dr. Pedro Gonzales Consult Date: 04/27/23 Chief Complaint - Chief Complaint Chief Complaint: RLQ pain - consistent with acute appendicitis History of Present Illness - Admitted From Admitted From:: Outpatient - ED - History Obtained From Records Reviewed: Yes. History obtained from: Primarily patient and mother Exam Limitations: None - History of Present Illness HPI Comment/Other: This is an exceedingly pleasant 33-year-old gentleman I have been asked to see by Dr. Gonzales for acute appendicitis. The patient is evaluated in room 11 at [facility]'s emergency department. His mother was present for the entire examination and discussion. His symptoms started on the morning of the fourth (please note that this dictation is occurring just after midnight on the fifth). He woke up feeling okay and had coffee and some cookies and then the pain started somewhat periumbilically. 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 He felt as though he was going to vomit and then did not wish to do that at the restaurant. He did not vomit until he arrived here at the hospital. The pain is now localized in the right lower quadrant. He would like to have some fluids to drink but is not particularly hungry. Motion worsens the pain. He did have a large bowel movement that was described as normal this morning. He has never had these symptoms previously. History - Past Medical History Cardiovascular: reports: None Respiratory: reports: None Endocrine/Autoimmune: reports: None GI: reports: None : reports: None HEENT: reports: None Psych: reports: None Musculoskeletal: reports: None Derm: reports: None MRSA Hx?: No - Past Surgical History Ortho: reports: Other (Ankle surgery) - POLST Patient has POLST: No Meds/Allgy - Home Medications Home Medications: Ambulatory Orders Medication Instructions Recorded Confirmed Sulfamethox/Trimeth 800/160 1 each PO BID #14 tablet 06/11/20 [Bactrim Ds 800/160] - Allergies Allergies/Adverse Reactions: Allergies Allergy/AdvReac Type Severity Reaction Status Date / Time Penicillins Allergy Unknown Verified 06/11/20 06:44 Review of Systems - Constitutional Constitutional: denies: Fatigue - Eyes Eyes: denies: Pain - Ears, Nose & Throat Ears, Nose & Throat: denies: Ear pain - Cardiovascular Cariovascular: denies: Irregular heart rate, Palpitations, Chest pain - Respiratory Respiratory: denies: Cough, Wheezing - Gastrointestinal Gastrointestinal: reports: Abdominal pain, Nausea, Vomiting. denies: Black stools, Bloody stools, Bile emesis Exam - Vital Signs Reviewed Vital Signs: Yes Vital Signs: Vital Signs x48h Temp Pulse Resp BP Pulse Ox 04/27/23 20:26 36.9 C 60 16 129/84 H 100 04/27/23 20:15 36.9 C 60 16 129/84 H 100 - Physical Exam General Appearance: positive: No acute distress, Alert Eyes Bilateral: positive: No lid inflammation, Conjunctivae nml, No scleral icterus ENT: positive: Dry mucous membranes Neck: positive: Trachea midline Respiratory: positive: Chest non-tender, No respiratory distress, Breath sounds nml Cardiovascular: positive: Regular rate & rhythm Abdomen: positive: Nml bowel sounds, Tenderness (at McBurney's point with some mild peritoneal findings), Other (Umbilical hernia, reduced) Skin: positive: Color nml, No rash, Warm, Dry Extremities: positive: Non-tender, Full ROM, Nml appearance Neurologic/Psychiatric: positive: Oriented x3, Motor nml, Sensation nml, Mood/affect nml Conclusion and Plan - Lab Results Laboratory Results 04/27/23 20:42: Sodium 138, Potassium 3.7, Chloride 100 L, Carbon Dioxide 29, Anion Gap 9.0, BUN 15, Creatinine 1.1, Estimated GFR (MDRD) 76 L, Glucose 118 H, Calcium 10.4 H, Total Bilirubin 0.5, AST 23, ALT 25, Alkaline Phosphatase 84, Total Protein 8.6, Albumin 5.3, Globulin 3.3, Albumin/Globulin Ratio 1.6, Lipase 19 04/27/23 20:42: WBC 17.9 H, RBC 5.30, Hgb 16.4, Hct 48.0, MCV 90.6, MCH 30.9, MCHC 34.2, RDW 11.8 L, Plt Count 325, MPV 9.7, Neut # (Auto) 15.5 H, Lymph # (Auto) 1.1 L, [place] # (Auto) 1.0, Eos # (Auto) 0.1, Baso # (Auto) 0.1, Absolute Nucleated RBC 0.00, Nucleated RBC % 0.0 - Diagnostic Imaging Results Diagnostic Imaging Results: positive: Final report reviewed, Read independently - Diagnosis Diagnosis: Acute appendicitis (nonruptured) - Consultation Note Consultation Note: The patient's story, his physical examination, his labs, and his radiographic studies all strongly support a diagnosis of acute appendicitis. - Plan Plan: The indications, procedure, possible complications including but not limited to infection, bleeding, and were fully explained to the patient and his mother and all questions were answered. I explained that it is fortuitous that he has an umbilical hernia as I we will use the defect in his fascia to enter his abdomen and on the way out I will close the umbilical defect. I explained that if his appendix is nonruptured he should be able to go home tomorrow afternoon. With regards to work I explained that he should be off of work for at least a week until I get to see him back in the office. Even then he may require a note not to do any heavy lifting for total of 6 weeks following the operation. This was discussed with him. Additionally postoperatively I explained to him that he should keep his stools soft with the addition of either prunes or prune juice. He can use stool softeners but these will require a prescription and/or additional cost. He also spoke to me about hemorrhoids and what causes them and explained to him that hemorrhoids are present in advanced majority of people and do not pose any risk. They can be exceedingly annoying but they are not dangerous. Until his surgery he will be n.p.o. with the exception of some clears now for patient comfort. I will hydrate him with IV fluids and place him on levofloxacin and metronidazole as he is allergic to penicillin. The plan will be to operate this morning. I appreciate the opportunity to be involved in this very pleasant 33-year-old gentleman's care. CPT 16658
[2023-04-28] MEDS: HYDROmorphone 1 MG/ML CARPUJECT IVP STA (00:55)
[2023-04-28] MEDS: SODIUM CHLORIDE 0.9% 1,000 ML IV SCH (01:32)
[2023-04-28] MEDS: levoFLOXacin 500 MG/100 ML 500 MG/100 ML BAG IV ONE (01:32)
[2023-04-28] MEDS: metroNIDAZOLE 500 MG/100 ML 500 MG/100 ML BAG IV SCH (01:34)
[2023-04-28] MEDS: HYDROmorphone 1 MG/ML CARPUJECT IVP PRN (02:03)
[2023-04-28 08:19] LABS: BILIRUBIN,URINE NEGATIVE (NEGATIVE); GLUCOSE, URINE (UA) NEGATIVE (NEGATIVE); KETONES,URINE (UA) 15 mg/dL (NEGATIVE); LEUKOCYTE ESTERASE, URINE NEGATIVE (NEGATIVE); NITRITE,URINE NEGATIVE (NEGATIVE); OCCULT BLOOD,URINE NEGATIVE (NEGATIVE); PH,URINE 5.5 PH (5.0-7.5); PROTEIN,URINE NEGATIVE (NEGATIVE); UROBILINOGEN,URINE 0.2 (NORMAL) E.U./dL (NORMAL)
[2023-04-28 08:20] LABS: CLARITY,URINE CLEAR (CLEAR)
[2023-04-28] MEDS ORDERED: BUPIVACAINE 0.5%-EPI 1:200000 PF 30 ML VIAL ONE (10:29)
[2023-04-28] MEDS: BUPIVACAINE 0.5%-EPI 1:200000 PF 30 ML VIAL SUBQ ONE (10:36)
[2023-04-28] MEDS: ONDANSETRON 4 MG/2 ML VIAL IM PRN (10:38)
[2023-04-28] MEDS ORDERED: MORPHINE 2 MG/ML CARPUJECT IVP PRN (10:43)
[2023-04-28] MEDS ORDERED: ATROPINE ABBOJECT 1 MG/10 ML SYRINGE IVP PRN (10:43)
[2023-04-28] MEDS ORDERED: NALOXONE 0.4 MG/ML VIAL IVP PRN (10:43)
[2023-04-28] MEDS ORDERED: ePHEDrine 50 MG/ML VIAL IVP PRN (10:43)
[2023-04-28] MEDS ORDERED: fentaNYL 100 MCG/2 ML VIAL IVP PRN (10:43)
[2023-04-28] MEDS ORDERED: ONDANSETRON 4 MG/2 ML VIAL IVP PRN (10:43)
[2023-04-28] MEDS ORDERED: METOCLOPRAMIDE 10 MG/2 ML VIAL IVP PRN (10:43)
--- NOTE | 2023-04-28 10:43 | ANESTHESIA ---
Pre-Anesthesia VS, & Labs - Diagnosis Diagnosis Acute appendicitis (nonruptured) - Procedure Laparoscopic appendectomy Vital Signs: Temp Pulse Resp BP Pulse Ox O2 Flow Rate 36.9 C 51 L 15 137/69 H 97 04/27/23 20:26 04/28/23 07:37 04/28/23 07:37 04/28/23 07:37 04/28/23 07:37 Height: 5 ft 11 in Weight (kg): 81.647 kg Body Mass Index: 25.1 BMI Classification: Overweight - NPO >8 hours - Lab Results Current Lab Results: Laboratory Tests 04/27/23 20:42: Sodium 138, Potassium 3.7, Chloride 100 L, Carbon Dioxide 29, Anion Gap 9.0, BUN 15, Creatinine 1.1, Estimated GFR (MDRD) 76 L, Glucose 118 H, Calcium 10.4 H, Total Bilirubin 0.5, AST 23, ALT 25, Alkaline Phosphatase 84, Total Protein 8.6, Albumin 5.3, Globulin 3.3, Albumin/Globulin Ratio 1.6, Lipase 19 04/27/23 20:42: WBC 17.9 H, RBC 5.30, Hgb 16.4, Hct 48.0, MCV 90.6, MCH 30.9, MCHC 34.2, RDW 11.8 L, Plt Count 325, MPV 9.7, Neut # (Auto) 15.5 H, Lymph # (Auto) 1.1 L, [place] # (Auto) 1.0, Eos # (Auto) 0.1, Baso # (Auto) 0.1, Absolute Nucleated RBC 0.00, Nucleated RBC % 0.0 Fish Bones: 04/27/23 20:42 04/27/23 20:42 Home Medications and Allergies Active Medications Hydromorphone HCl (Hydromorphone 1 Mg/Ml Carpuject) 1 mg IVP Q2H PRN PRN Reason: PAIN 5-7 Last Admin: 04/28/23 09:22 Dose: 1 mg Sodium Chloride (Normal Saline 0.9%) 1,000 mls @ 100 mls/hr IV .Q10H [facility] Last Admin: 04/28/23 01:32 Dose: 100 mls/hr Metronidazole (Flagyl 500 Mg/100 Ml) 500 mg in 100 mls @ 100 mls/hr IV QID FABIAN Last Infusion: 04/28/23 10:18 Dose: Infused Ondansetron HCl (Ondansetron 4 Mg/2 Ml Vial) 4 mg IM Q4H PRN PRN Reason: Nausea / Vomiting Last Admin: 04/28/23 10:38 Dose: 4 mg Allergies/Adverse Reactions: Allergies Allergy/AdvReac Type Severity Reaction Status Date / Time Penicillins Allergy Unknown Verified 06/11/20 06:44 Anes History & Medical History - Anesthetic History Anesthesia Complications: reports: No previous complications - Medical History Cardiovascular: reports: None Pulmonary: reports: None Gastrointestinal: reports: None Urinary: reports: None Musculoskeletal: reports: None Endocrine/Autoimmune: reports: None Skin: reports: None Smoking Status: Never smoker - Surgical History Orthopedic: reports: Other Exam General: Alert, Oriented x3 Mouth Opening: Greater than 4 Fingerbreadths Neck Mobility: Normal Mallampati classification: II Thyromental Distance: greater than 6 cm Respiratory: Lungs clear Cardiovascular: Regular rate Plan Anesthesia Type: General Consent for Procedure(s) Verified and Reviewed: Yes Code Status: Attempt Resuscitation ASA classification: 1-Healthy patient Is this case an emergency?: Yes
[2023-04-28] MEDS ORDERED: fentaNYL 100 MCG/2 ML VIAL ONE ×2 (10:47→12:29)
[2023-04-28] MEDS ORDERED: PROPOFOL 200 MG/20 ML VIAL IVP ONE (10:48)
[2023-04-28] MEDS ORDERED: ROCURONIUM 50 MG/5 ML VIAL ONE (10:53)
[2023-04-28] MEDS ORDERED: LIDOCAINE-PF 2% 10 ML AMP SUBQ ONE (10:53)
[2023-04-28] MEDS ORDERED: LACTATED RINGERS 1,000 ML IV SCH (11:00)
[2023-04-28] MEDS ORDERED: ACETAMINOPHEN 1,000 MG/100 ML 1,000 MG/100 ML BAG IV ONE (11:37)
[2023-04-28] MEDS: LACTATED RINGERS 1,000 ML IV ONE ×2 (11:57→13:28)
[2023-04-28] MEDS ORDERED: KETOROLAC 30 MG/ML VIAL ONE (12:29)
--- NOTE | 2023-04-28 12:49 | OPERATIVE REPORT ---
Operative Report - General Procedure Date: 04/28/23 Planned Procedure: Laparoscopic appendectomy and umbilical herniorrhaphy Pre-Op Diagnosis: Acute appendicitis and umbilical hernia Procedure Performed: Laparoscopic appendectomy and umbilical herniorrhaphy Post Op Diagnosis: Acute appendicitis and umbilical hernia - Procedure Note Primary Surgeon: Igor Jimenes MD Anesthesia Provider: Akosua Ayers CRNA Anesthesia Technique: General ET tube, Local (30 mL of half percent Marcaine with epinephrine) IV Fluids (mL): 1,000 Estimated Blood Loss (mL): 10 Drain/Tube Type: Other (None.) Indications: Acute appendicitis and umbilical hernia Findings: Acute nonperforated appendicitis and complex umbilical hernia Complications: None. - Other Other Information/Narrative: After verbal and written informed consent was obtained detailing the operation, the alternatives to the operation including no operation, risks of infection, bleeding requiring transfusion with its risks, nerve injury, and and after I met with the patient confirming the surgery, the patient was brought to the operative suite and placed supine on the operating table. Great care was taken to avoid pressure points to prevent pressure necrosis or nerve injury. Monitoring devices were applied along with TEDs and pneumatic compressive stockings (to prevent DVT). The patient received preoperative antibiotics for surgical prophylaxis. Akosua Ayers CRNA sedated and anesthetized the patient for the entire procedure. The patient was prepped and draped in usual sterile manner. A "time in" then confirmed that the patient was identified with 3 identifiers (name, date, and medical record number), the history and physical was in the chart, the signed consent confirming the procedure was in the chart, the patient was in the correct position, the aforementioned prophylactic measures were in place were given, we had the correct personnel and equipment to complete the procedure and that anesthesia, and the surgical team was given an opportunity to express any concerns. With the agreement of everyone in the room, we proceeded with the operation. The initial incision was at the umbilicus and dissection to the large hernia defect was completed using blunt dissection. The hernia sac was then dissected free from the underside of the umbilicus and taken down to the fascial defect using Bovie electrocautery. The hernia defect was actually several openings in the fascia (3) and each one of these was separately defined and the fascial edges were cleaned of any adherent tissue. The hernia defect measured 4 cm in total. Once I had dissected back far enough onto the fascia, 2 0 PDS sutures were placed in a [id number] fashion in order to repair this large fascial defect. These were not tied but rather placed so that at the completion of the case tying them would repair of the umbilical hernia. Great care was taken to ensure that all 3 defects were included in the repair. In this location, a 12 mm blunt tipped, balloon tipped port was placed and the balloon was inflated to keep the port in position. The abdominal cavity was insufflated with carbon dioxide to a steady-state pressure of 15 mmHg. 2 additional 5 mm ports were placed in standard locations for laparoscopic appendectomy (above and below the umbilicus at the midline) under direct vision of the 30 degree laparoscope and without incident. The patient was then placed in Trendelenburg position and was rotated slightly to their left. Examination of the right lower quadrant revealed a thickened and clearly infected/inflamed appendix with fibrinous exudate. This was carefully grasped to avoid rupture and the appendiceal mesentery was taken using sequential application of the LigaSure. Once the base of the appendix was encountered the appendix was transected using a laparoscopic KATINA stapler with a GI load that had been placed through the umbilical port and the camera was switched to a 5 mm camera and placed through one of the 5 mm ports. Examination of the staple line noted to be intact without leak or bleeding. An Endopouch was placed through th e umbilical port and the appendix was placed into the Endopouch and the Endopouch was secured. The left right lower quadrant was then copiously irrigated using 2 L of warm sterile saline. I injected the port sites at the peritoneal, fascial, and skin levels under direct vision with 0.5% Marcaine with epinephrine. Photographs are taken throughout the case. All ports and the Endopouch containing the appendix were removed. Following appendiceal removal, the remaining carbon dioxide was expelled from the abdomen. The fascia the umbilicus was approximated using the 2 previously placed PDS sut ures. The backside of the umbilical skin was sutured down to the fascia to give the patient an "innie". The skin at each port site was approximated using a subcuticular 4-0 Monocryl. The skin was cleaned of its prep and Dermabond was applied. At this point a "timeout" was performed that confirmed that all counts were correct, the procedure that was performed, the blood loss, the IV fluids administered, the patient's condition and any concerns of the operating team had. Dressings were then applied. Having tolerated the procedure well, the patient was extubated and taken to recovery room in good and stable condition. The plan is for outpatient discharge when the patient is adequately recovered. CPT 14312 (laparoscopic appendectomy) CPT 88229 (umbilical hernia 4 cm in size total (multiple defects)) This document was created in part using voice recognition technology. Because of the inherent limitations of the system, occasional same sounding word substitutions and grammatical errors do occur and persist despite proofreading. Please read this document for context.
[2023-04-28] MEDS ORDERED: HYDROmorphone 0.5 MG/0.5 ML SYRINGE IVP PRN (13:11)
[2023-04-28] MEDS ORDERED: HYDROmorphone 0.5 MG/0.5 ML SYRINGE ONE ×2 (13:11→13:21)
[2023-04-28] MEDS: HYDROmorphone 0.5 MG/0.5 ML SYRINGE IVP PRN (13:13)
--- NOTE | 2023-04-28 13:23 | ANESTHESIA POST OP EVALUATION ---
Anesthesia Post Eval - Post Anesthesia Eval Vitals: Last Vital Signs Temp 36.5 C 04/28/23 13:19 Pulse 85 04/28/23 13:19 Resp 12 04/28/23 13:19 BP 144/89 H 04/28/23 13:19 Pulse Ox 95 04/28/23 13:19 O2 Flow Rate CV Function Including HR & BP: Stable Pain Control: Satisfactory Nausea & Vomiting: Negative Mental Status: Baseline Respiratory Status: Airway Patent Hydration Status: Satisfactory Anesthesia Complications: None
[2023-04-28] MEDS ORDERED: ONDANSETRON 4 MG/2 ML VIAL ONE (14:01)
[2023-04-28] MEDS: ONDANSETRON 4 MG/2 ML VIAL IVP PRN (14:02)
[2023-04-28] MEDS ORDERED: HYDROcod/ACETAM 5/325 MG TABLET ONE (14:16)
[2023-04-28] MEDS: HYDROcod/ACETAM 5/325 MG TABLET PO PRN (14:18)
[2023-04-28 14:35] VITALS: BP 135/85; O2SAT 95
== END 2023-04-28 00:27 | disposition home or self-care (01) ==
LOC: ED 20:13 → SDS 04-28 00:26
PROVIDERS: ATTEND Surgery
PROC: 0DTJ4ZZ Resection of Appendix, Percutaneous Endoscopic Approach (ICD-10-PCS; principal; 2023-04-28 10:45)
DX: K35.80 Unspecified acute appendicitis (principal); K42.9 Umbilical hernia without obstruction or gangrene
CPT/HCPCS: 36415; 44970; 49593; 74177; 80053; 81003; 83690; 85025; 96374; 99284; 99285; A9270; J0131; J1170; J7120; Q9967; 81001; 87086